=== PATIENT | female | born 1990 | race African-American/Black ===

== ENCOUNTER 2018-03-26 08:22 | Emergency (ER) | payer MEDICAID ==
[~2018-03-26] VITALS: Ht 167.6 cm; Wt 63.5 kg
[~2018-03-26 08:22] MED LIST: IBUP-779 PO; IRON-15 PO; PREN-142 PO
[2018-03-26 08:34] VITALS: BP 109/70
== END 2018-03-26 08:55 | disposition left against medical advice (07) ==
LOC: ER 08:26
DX: R10.9 Unspecified abdominal pain (principal); Z53.21 Procedure and treatment not carried out due to patient leaving prior to being seen by health care provider

== ENCOUNTER 2022-12-27 15:40 | Emergency (ER) | payer MEDICAID ==
[~2022-12-27] VITALS: Ht 162.6 cm; Wt 60.0 kg
[~2022-12-27 15:40] MED LIST changes: -PREN-142 PO; +PRENATAL ONE T1 EACH PO
[2022-12-27 15:51] VITALS: O2SAT 100
[2022-12-27 15:57] VITALS: BP 130/79; PULSE 99; RESP 16; TEMP 98.1
[2022-12-27 16:45] LABS: ALBUMIN 4.3 g/dL (3.4-5.0); CHLORIDE 114 mEq/L (98-107); INDEX HEMOLYSI 1 (1-3); INDEX ICTERIC 1 (1-4); INDEX LIPEMIC 1 (1-3); POTASSIUM 3.4 mEq/L (3.5-5.1); SODIUM 142 mEq/L (136-145)
[2022-12-27 16:56] LABS: ALANINE AMINOTRANSFERASE 28 IU/L (13-61); ASPARTATE AMINOTRANSFERASE 28 IU/L (15-37); BILIRUBIN TOTAL 0.5 mg/dL (0.1-1.0); CARBON DIOXIDE 18 mEq/L (21-32); CREATININE 0.5 mg/dL (0.6-1.3); GLUCOSE 92 mg/dL (70-105); PROTEIN TOTAL 8.1 g/dL (6.0-8.3); TROPONIN I HIGH SENSITIVITY 17 ng/L (<54); UREA NITROGEN BLOOD 13 mg/dL (7-21)
[2022-12-27 16:58] LABS: CALCIUM 8.7 mg/dL (8.5-10.1)
[2022-12-27] MEDS ORDERED: ONDANSETRON HCL 4MG/2ML INJ IV STA (17:40)
[2022-12-27] MEDS ORDERED: KETOROLAC 30MG/ML VIAL IV STA (17:40)
[2022-12-27] MEDS ORDERED: SODIUM CHLORIDE 0.9% 1,000 ML IV ONE (17:45)
[2022-12-27 18:24] LABS: CLARITY URINE CLOUDY (CLEAR); COLOR URINE YELLOW (YELLOW); GLUCOSE URINE NEGATIVE (NEGATIVE); KETONES URINE 3+ (NEGATIVE); LEUKOCYTE ESTERASE URINE 1+ (NEGATIVE); NITRITE URINE NEGATIVE (NEGATIVE); OCCULT BLOOD URINE TRACE (NEGATIVE); PH URINE 5.5 (4.5-8.0); PROTEIN URINE TRACE (NEGATIVE); SPECIFIC GRAVITY URINE 1.022 (1.005-1.030); UROBILINOGEN URINE 0.2 E.U./dL (0.2-1.0)
[2022-12-27 18:26] LABS: SQUAMOUS EPITHELIAL CELL URINE 1+ /lpf (RARE/1+); YEAST URINE NONE SEEN
[2022-12-27 19:09] LABS: BASOPHILS % 0.2 % (0.0-2.0); HEMATOCRIT. 33.2 % (36.0-48.0); HEMOGLOBIN. 11.2 g/dL (12.0-16.0); MEAN CORPUSCULAR HEMOGLOBIN 33.6 pg (28.0-32.0); MEAN CORPUSCULAR HGB CONC 33.8 g/dL (31.0-37.0); MEAN CORPUSCULAR VOLUME 99.5 fL (81.0-99.0); MONOCYTES % 5.6 % (2.0-8.0); NEUTROPHILS % 86.2 % (40.0-76.0); PLATELET 339 x1000/uL (130-400); RED BLOOD CELL COUNT 3.34 mill/uL (4.2-5.4); RED CELL DISTRIBUTION WIDTH 13.6 % (11.6-14.6); WHITE BLOOD COUNT 13.9 x1000/uL (4.5-11.0)
[2022-12-27 19:09] LABS: BACTERIA URINE 2+; RBC URINE 0-2 /hpf (0-2)
[2022-12-27 19:24] LABS: HCG SCREEN NEGATIVE
== END 2022-12-27 20:29 | disposition left against medical advice (07) ==
LOC: ER 15:40
DX: R10.13 Epigastric pain (principal); J45.909 Unspecified asthma, uncomplicated
CPT/HCPCS: 99284; 80053; 81003; 81025; 84703; 83690; 85025; 84484; 36415; 93005; J7030

== ENCOUNTER 2023-06-02 12:29 | Emergency (ER) | payer MEDICAID ==
[~2023-06-02] VITALS: Ht 165.1 cm; Wt 60.0 kg
[2023-06-02 12:40] VITALS: BP 106/82; PULSE 87; RESP 18; TEMP 97.8; O2SAT 100
== END 2023-06-02 15:15 | disposition left against medical advice (07) ==
LOC: ER 12:29
DX: R10.9 Unspecified abdominal pain (principal); Z53.21 Procedure and treatment not carried out due to patient leaving prior to being seen by health care provider
CPT/HCPCS: 99281

== ENCOUNTER 2023-11-01 15:12 | Emergency (ER) | payer MEDICAID ==
[~2023-11-01] VITALS: Ht 162.6 cm; Wt 59.0 kg
[2023-11-01 15:13] VITALS: O2SAT 100
[2023-11-01] MEDS ORDERED: LACTATED RINGERS 1,000 ML IV SCH (15:30)
[2023-11-01 15:41] LABS: BASOPHILS % 0.9 % (0.0-2.0); DIFFERENTIAL COMMENT 0; EOSINOPHILS % 0.1 % (0.0-5.0); HEMATOCRIT. 38.9 % (36.0-48.0); HEMOGLOBIN. 13.3 g/dL (12.0-16.0); MEAN CORPUSCULAR HEMOGLOBIN 34.3 pg (28.0-32.0); MEAN CORPUSCULAR HGB CONC 34.1 g/dL (31.0-37.0); MEAN CORPUSCULAR VOLUME 100.7 fL (81.0-99.0); MEAN PLATELET VOLUME 7.2 fl (7.4-10.4); MONOCYTES % 5.7 % (2.0-8.0); NEUTROPHILS % 76.3 % (40.0-76.0); PLATELET 327 x1000/uL (130-400); RED BLOOD CELL COUNT 3.87 mill/uL (4.2-5.4); RED CELL DISTRIBUTION WIDTH 12.8 % (11.6-14.6); WHITE BLOOD COUNT 9.5 x1000/uL (4.5-11.0)
[2023-11-01 15:48] LABS: CHLORIDE 105 mEq/L (98-107); SODIUM 139 mEq/L (136-145)
[2023-11-01 15:49] LABS: CALCIUM 9.5 mg/dL (8.7-10.4); CARBON DIOXIDE 20 mEq/L (21-32)
[2023-11-01 15:54] LABS: CREATININE 0.7 mg/dL (0.6-1.0); GLUCOSE 125 mg/dL (70-105); UREA NITROGEN BLOOD 6 mg/dL (9-23)
[2023-11-01] MEDS: ONDANSETRON HCL 4MG/2ML INJ IV ONE (15:55)
[2023-11-01] MEDS: FAMOTIDINE 20MG/2ML VIAL IV ONE (15:55)
[2023-11-01 15:56] LABS: ALANINE AMINOTRANSFERASE 15 IU/L (10-49); ALBUMIN 4.8 g/dL (3.2-4.8); ASPARTATE AMINOTRANSFERASE 16 IU/L (<34); BILIRUBIN DIRECT 0.3 mg/dL (<=3.0)
[2023-11-01 15:57] LABS: BILIRUBIN TOTAL 1.1 mg/dL (0.1-1.0); PROTEIN TOTAL 7.9 g/dL (6.0-8.3)
[2023-11-01] MEDS: ACETAMINOPHEN 325MG TABLET PO ONE (15:58)
[2023-11-01 16:03] LABS: HCG SCREEN NEGATIVE
[2023-11-01] MEDS: MORPHINE SULFATE 4 MG/ML INJ (FOR IV/IM USE) IV ONE (17:34)
[2023-11-01] MEDS: POTASSIUM CHLORIDE 20MEQ/PACKET PO ONE (17:46)
[2023-11-01 17:54] LABS: CLARITY URINE CLEAR (CLEAR); COLOR URINE YELLOW (YELLOW); GLUCOSE URINE NEGATIVE (NEGATIVE); KETONES URINE 2+ (NEGATIVE); LEUKOCYTE ESTERASE URINE 1+ (NEGATIVE); NITRITE URINE NEGATIVE (NEGATIVE); OCCULT BLOOD URINE NEGATIVE (NEGATIVE); PH URINE >=9.0 (4.5-8.0); PROTEIN URINE 1+ (NEGATIVE); SPECIFIC GRAVITY URINE 1.024 (1.005-1.030)
[2023-11-01] MEDS ORDERED: ONDA4TAB11 PO (18:09)
[2023-11-01] MEDS ORDERED: FAMO-135 PO (18:09)
[2023-11-01 18:38] VITALS: BP 123/84; PULSE 78; RESP 16; TEMP 98.6
[2023-11-01 18:39] LABS: BACTERIA URINE 1+; RBC URINE 0-2 /hpf (0-2); SQUAMOUS EPITHELIAL CELL URINE 2+ /lpf (RARE/1+)
== END 2023-11-01 18:38 | disposition home or self-care (01) ==
LOC: ER 15:12
DX: R10.9 Unspecified abdominal pain (principal); R11.2 Nausea with vomiting, unspecified; E87.6 Hypokalemia; J45.909 Unspecified asthma, uncomplicated; Z91.018 Allergy to other foods
CPT/HCPCS: 80076; 80048; 81003; 84703; 83690; 85025; 87086; 36415; 76700; 96374; 96375; 99291; J3490; J2405; J2270; Z7610

== ENCOUNTER 2023-12-08 11:58 | Emergency (ER) | payer MEDICAID ==
[~2023-12-08] VITALS: Ht 177.8 cm; Wt 68.0 kg
[~2023-12-08 11:58] MED LIST changes: +FAMO-135 PO; +ONDA-239 PO
[2023-12-08 12:00] VITALS: O2SAT 98
[2023-12-08] MEDS ORDERED: DICYCLOMINE 10 MG/5 ML ORAL SYR PO STA (12:24)
[2023-12-08] MEDS: ONDANSETRON HCL 4MG/2ML INJ IV STA (12:32)
[2023-12-08] MEDS: KETOROLAC 30MG/ML VIAL IV STA (12:33)
[2023-12-08] MEDS: SODIUM CHLORIDE 0.9% 1,000 ML IV ONE ×2 (12:36→13:10)
[2023-12-08] MEDS: DICYCLOMINE HCL 10MG CAPSULE PO NR (13:09)
[2023-12-08] MEDS: FAMOTIDINE 20MG TABLET PO ONE (13:09)
[2023-12-08] MEDS: MAGNESIUM/ALUMINUM HYDROXIDE/SIMETHICONE 30ML UDC PO STA (13:09)
[2023-12-08 13:11] LABS: PROTHROMBIN TIME 11.3 sec (9.6-11.0)
[2023-12-08 13:12] LABS: CHLORIDE 106 mEq/L (98-107); POTASSIUM 3.4 mEq/L (3.5-5.1); SODIUM 138 mEq/L (136-145)
[2023-12-08 13:14] LABS: CARBON DIOXIDE 21 mEq/L (21-32)
[2023-12-08 13:15] LABS: CALCIUM 9.5 mg/dL (8.7-10.4)
[2023-12-08 13:20] LABS: CREATININE 0.6 mg/dL (0.6-1.0); GLUCOSE 111 mg/dL (70-105); UREA NITROGEN BLOOD 7 mg/dL (9-23)
[2023-12-08 13:21] LABS: ALANINE AMINOTRANSFERASE 12 IU/L (10-49); ASPARTATE AMINOTRANSFERASE 18 IU/L (<34); BASOPHILS % 0.5 % (0.0-2.0); DIFFERENTIAL COMMENT 0; HEMOGLOBIN. 11.6 g/dL (12.0-16.0); LYMPHOCYTES % 13.9 % (20.0-50.0); MEAN CORPUSCULAR HEMOGLOBIN 33.7 pg (28.0-32.0); MEAN CORPUSCULAR HGB CONC 33.1 g/dL (31.0-37.0); MEAN CORPUSCULAR VOLUME 101.7 fL (81.0-99.0); MEAN PLATELET VOLUME 7.6 fl (7.4-10.4); MONOCYTES % 4.5 % (2.0-8.0); NEUTROPHILS % 81.1 % (40.0-76.0); PLATELET 324 x1000/uL (130-400); RED BLOOD CELL COUNT 3.44 mill/uL (4.2-5.4); RED CELL DISTRIBUTION WIDTH 12.8 % (11.6-14.6); WHITE BLOOD COUNT 10.9 x1000/uL (4.5-11.0)
[2023-12-08 13:22] LABS: ALBUMIN 5.1 g/dL (3.2-4.8); BILIRUBIN DIRECT 0.4 mg/dL (<=3.0); BILIRUBIN TOTAL 1.1 mg/dL (0.1-1.0); PROTEIN TOTAL 7.8 g/dL (6.0-8.3)
[2023-12-08 13:24] LABS: TROPONIN I HIGH SENSITIVITY < 4 ng/L (3.0-34)
[2023-12-08 13:30] LABS: HCG SCREEN NEGATIVE
[2023-12-08] MEDS: HALOPERIDOL LACTATE 5MG/ML VIAL IM ONE (13:39)
[2023-12-08] MEDS ORDERED: FAMO-135 MT (15:09)
[2023-12-08 15:27] VITALS: BP 113/71; PULSE 88; RESP 16; TEMP 36.94740; O2SAT 98
== END 2023-12-08 15:28 | disposition home or self-care (01) ==
LOC: ER 12:41
DX: K29.70 Gastritis, unspecified, without bleeding (principal); F12.90 Cannabis use, unspecified, uncomplicated; J45.909 Unspecified asthma, uncomplicated; Z91.018 Allergy to other foods
CPT/HCPCS: 80076; 80048; 84703; 83690; 85025; 85610; 84484; 36415; 71045; 96361; 96372; 96374; 96375; 99284; J1630; J1885; J2405; J7030; Z7610 ×3

== ENCOUNTER 2024-03-09 13:29 | Emergency (ER) | payer MEDICAID ==
[~2024-03-09] VITALS: Ht 165.1 cm; Wt 70.0 kg
[~2024-03-09 13:29] MED LIST changes: +FAMO-135 MT
[2024-03-09 13:30] VITALS: O2SAT 100
[2024-03-09] MEDS ORDERED: CAPSAICIN 0.075% CREAM 57GM TOP PRN (13:45)
[2024-03-09] MEDS: ACETAMINOPHEN 1000MG/100ML 100 ML IV ONE (14:14)
[2024-03-09] MEDS: DICYCLOMINE HCL 10MG/ML 2ML VIAL IM ONE (14:14)
[2024-03-09] MEDS: FAMOTIDINE 20MG/2ML VIAL IV ONE (14:14)
[2024-03-09] MEDS: ONDANSETRON HCL 4MG/2ML INJ IV ONE (14:14)
[2024-03-09] MEDS: SODIUM CHLORIDE 0.9% 1,000 ML IV ONE (14:28)
[2024-03-09] MEDS: MORPHINE SULFATE 2 MG/ML INJ (NOT FOR IM USE) IV ONE (14:31)
[2024-03-09 14:34] VITALS: TEMP 36.66960
[2024-03-09 14:36] LABS: BASOPHILS % 0.2 % (0.0-2.0); DIFFERENTIAL COMMENT 0; HEMATOCRIT. 35.7 % (36.0-48.0); HEMOGLOBIN. 12.1 g/dL (12.0-16.0); LYMPHOCYTES % 13.1 % (20.0-50.0); MEAN CORPUSCULAR HEMOGLOBIN 34.4 pg (28.0-32.0); MEAN CORPUSCULAR HGB CONC 33.8 g/dL (31.0-37.0); MEAN CORPUSCULAR VOLUME 101.7 fL (81.0-99.0); MEAN PLATELET VOLUME 7.5 fl (7.4-10.4); MONOCYTES % 6.5 % (2.0-8.0); NEUTROPHILS % 80.2 % (40.0-76.0); PLATELET 304 x1000/uL (130-400); RED BLOOD CELL COUNT 3.51 mill/uL (4.2-5.4); RED CELL DISTRIBUTION WIDTH 13.1 % (11.6-14.6); WHITE BLOOD COUNT 10.9 x1000/uL (4.5-11.0)
[2024-03-09 14:41] LABS: CHLORIDE 107 mEq/L (98-107); HCG SCREEN NEGATIVE; POTASSIUM 3.6 mEq/L (3.5-5.1); SODIUM 138 mEq/L (136-145)
[2024-03-09 14:43] LABS: CALCIUM 9.3 mg/dL (8.7-10.4); CARBON DIOXIDE 20 mEq/L (21-32)
[2024-03-09 14:48] LABS: CREATININE 0.7 mg/dL (0.6-1.0); GLUCOSE 124 mg/dL (70-105); UREA NITROGEN BLOOD 7 mg/dL (9-23)
[2024-03-09 14:50] LABS: ALANINE AMINOTRANSFERASE 12 IU/L (10-49); ALBUMIN 4.6 g/dL (3.2-4.8); ASPARTATE AMINOTRANSFERASE 19 IU/L (<34); BILIRUBIN DIRECT 0.4 mg/dL (<=3.0); BILIRUBIN TOTAL 1.3 mg/dL (0.1-1.0); PROTEIN TOTAL 7.9 g/dL (6.0-8.3)
[2024-03-09 14:51] LABS: ETHANOL BLOOD < 10 mg/dL (<10)
[2024-03-09 16:53] VITALS: BP 136/77; PULSE 87; RESP 13; O2SAT 100
== END 2024-03-09 17:06 | disposition home or self-care (01) ==
LOC: ER 13:39
DX: R10.13 Epigastric pain (principal); F12.10 Cannabis abuse, uncomplicated; J45.909 Unspecified asthma, uncomplicated; Z79.899 Other long term (current) drug therapy
CPT/HCPCS: 80076; 80048; 80320; 84703; 83690; 85025; 36415; 96365; 96372; 96375; 99284; J0500; J3490; J2405; J2270; J7030; Z7610 ×2; G0480; J0131

== ENCOUNTER 2024-06-11 05:55 | Emergency (ER) | payer MEDICAID ==
[~2024-06-11] VITALS: Ht 170.2 cm; Wt 63.0 kg
[2024-06-11 06:06] VITALS: BP 119/98; PULSE 96; RESP 18; TEMP 36.6; O2SAT 100
[2024-06-11] MEDS: HALOPERIDOL LACTATE 5MG/ML VIAL IM ONE (06:34)
[2024-06-11 06:39] LABS: CLARITY URINE CLEAR (CLEAR); COLOR URINE YELLOW (YELLOW); GLUCOSE URINE NEGATIVE (NEGATIVE); KETONES URINE TRACE (NEGATIVE); LEUKOCYTE ESTERASE URINE NEGATIVE (NEGATIVE); NITRITE URINE NEGATIVE (NEGATIVE); OCCULT BLOOD URINE NEGATIVE (NEGATIVE); PH URINE >=9.0 (4.5-8.0); PROTEIN URINE 1+ (NEGATIVE); SPECIFIC GRAVITY URINE 1.019 (1.005-1.030); UROBILINOGEN URINE 0.2 E.U./dL (0.2-1.0)
[2024-06-11 07:00] LABS: CHLORIDE 108 mEq/L (98-107); POTASSIUM 3.7 mEq/L (3.5-5.1); SODIUM 142 mEq/L (136-145)
[2024-06-11 07:01] LABS: CALCIUM 8.9 mg/dL (8.7-10.4); CARBON DIOXIDE 22 mEq/L (21-32)
[2024-06-11 07:04] LABS: *AMPHETAMINES SCREEN URINE NEGATIVE (NEGATIVE); *BENZODIAZEPINES SCREEN URINE NEGATIVE (NEGATIVE)
[2024-06-11 07:05] LABS: *BARBITURATES SCREEN URINE NEGATIVE (NEGATIVE); *COCAINE SCREEN URINE NEGATIVE (NEGATIVE); CANNABINOID URINE SCREEN PRESUMPTIVE POSITIVE (NEGATIVE); ECSTASY MDMA SCREEN URINE NEGATIVE (NEGATIVE); METHADONE URINE SCREEN NEGATIVE (NEGATIVE); OPIATES URINE SCREEN NEGATIVE (NEGATIVE); PHENCYCLIDINE URINE SCREEN NEGATIVE (NEGATIVE)
[2024-06-11 07:06] LABS: CREATININE 0.6 mg/dL (0.6-1.0); GLUCOSE 121 mg/dL (70-105); UREA NITROGEN BLOOD 7 mg/dL (9-23)
[2024-06-11 07:11] LABS: BASOPHILS % 0.5 % (0.0-2.0); DIFFERENTIAL COMMENT 0; EOSINOPHILS % 0.2 % (0.0-5.0); HEMATOCRIT. 37.5 % (36.0-48.0); HEMOGLOBIN. 12.5 g/dL (12.0-16.0); LYMPHOCYTES % 28.8 % (20.0-50.0); MEAN CORPUSCULAR HEMOGLOBIN 33.9 pg (28.0-32.0); MEAN CORPUSCULAR HGB CONC 33.2 g/dL (31.0-37.0); MEAN CORPUSCULAR VOLUME 102.1 fL (81.0-99.0); MEAN PLATELET VOLUME 7.5 fl (7.4-10.4); MONOCYTES % 7.6 % (2.0-8.0); NEUTROPHILS % 62.9 % (40.0-76.0); PLATELET 325 x1000/uL (130-400); RED BLOOD CELL COUNT 3.68 mill/uL (4.2-5.4); RED CELL DISTRIBUTION WIDTH 13.1 % (11.6-14.6); WHITE BLOOD COUNT 8.4 x1000/uL (4.5-11.0)
[2024-06-11 07:23] LABS: BACTERIA URINE NONE SEEN; RBC URINE 0-2 /hpf (0-2); SQUAMOUS EPITHELIAL CELL URINE 1+ /lpf (RARE/1+); WBC URINE 0-2 /hpf (0-2)
[2024-06-11 08:12] LABS: INR 1.1; PROTHROMBIN TIME 11.8 sec (9.6-11.0)
[2024-06-11] MEDS ORDERED: DICYCLOMINE 10 MG/5 ML ORAL SYR PO STA (08:15)
[2024-06-11] MEDS ORDERED: KETOROLAC 30MG/ML VIAL IM STA (08:15)
[2024-06-11] MEDS ORDERED: MAGNESIUM/ALUMINUM HYDROXIDE/SIMETHICONE 30ML UDC PO STA (08:15)
[2024-06-12] MEDS ORDERED: ALBU90AE INH (03:08)
[2024-06-12] MEDS ORDERED: MULT-276 MT (05:07)
== END 2024-06-11 08:40 | disposition left against medical advice (07) ==
LOC: ER 06:02
DX: R10.9 Unspecified abdominal pain (principal); J45.909 Unspecified asthma, uncomplicated; Z79.899 Other long term (current) drug therapy
CPT/HCPCS: 80305; 80048; 81003; 81025; 83690; 85025; 85610; 36415; 74176; 76830; 76856; 96372; 99285; J1630; Z7610